=== PATIENT | male | born 1945 | race Caucasian/White ===

== ENCOUNTER 2017-11-10 08:54 | Day surgery (SDC) | payer OTHER ==
[~2017-11-10] VITALS: Ht 177.8 cm; Wt 72.6 kg
[2017-11-10 09:41] VITALS: BP 105/74; PULSE 72; TEMP 98.6
[2017-11-10] MEDS ORDERED: SYNTHROID 0.0.025 MG PO (09:49)
[2017-11-10] MEDS ORDERED: MASON NATURAL2000 IU PO (09:50)
[2017-11-10] MEDS ORDERED: VITAMIN E1000 U/CAP PO (09:50)
[2017-11-10] MEDS ORDERED: STEEL LIBIDO PO (09:51)
[2017-11-10] MEDS ORDERED: MULTIPLE VITAMI1 CAP PO (09:51)
[2017-11-10] MEDS ORDERED: MICRO-K 10 EXT10 MEQ PO (09:52)
[2017-11-10] MEDS ORDERED: IMMUNE PO (09:53)
[2017-11-10] MEDS ORDERED: [UNRECOGNIZED DRUG - OTHER] PO (09:53)
[2017-11-10] MEDS ORDERED: MAGNESIUM200 MG PO (09:53)
[2017-11-10] MEDS ORDERED: [UNRECOGNIZED DRUG - OTHER] PO (09:54)
[2017-11-10 10:43] VITALS: BP 100/69; PULSE 67; TEMP 97.8
[2017-11-10 11:00] VITALS: BP 104/77; PULSE 79
[2017-11-10 11:15] VITALS: BP 101/71; PULSE 75
== END 2017-11-10 11:40 | disposition home or self-care (01) ==
LOC: SDCO 08:54
DX: Z12.11 Encounter for screening for malignant neoplasm of colon (principal); K57.30 Diverticulosis of large intestine without perforation or abscess without bleeding; C91.10 Chronic lymphocytic leukemia of B-cell type not having achieved remission; E03.9 Hypothyroidism, unspecified; Z87.891 Personal history of nicotine dependence
CPT/HCPCS: J2250; J3010; J7030

== ENCOUNTER 2019-03-13 09:15 | Outpatient (RCR) | payer OTHER ==
[~2019-03-13 09:15] MED LIST: IMMUNE PO; MAGNESIUM200 MG PO; MASON NATURAL2000 IU PO; MICRO-K 10 EXT10 MEQ PO; MULTIPLE VITAMI1 CAP PO; STEEL LIBIDO PO; SYNTHROID 0.0.025 MG PO; VITAMIN E1000 U/CAP PO; [UNRECOGNIZED DRUG - OTHER] PO; [UNRECOGNIZED DRUG - OTHER] PO
== END 2019-05-16 | disposition still patient (30) ==
LOC: MKS.ESL.PT
DX: M54.5 Low back pain (principal)
CPT/HCPCS: G0283-GP

== ENCOUNTER 2019-06-03 17:16 | Outpatient (RCR) | payer OTHER ==
[2019-06-04] MEDS ORDERED: [UNRECOGNIZED DRUG - OTHER] (10:22)
[2019-06-04] MEDS ORDERED: UBIQUINOL100 MG PO (10:23)
[2019-06-04] MEDS ORDERED: SELENIUM200 MC5 PO (10:23)
[2019-06-04] MEDS ORDERED: [UNRECOGNIZED DRUG - OTHER] PO (10:30)
[2019-06-04] MEDS ORDERED: [UNRECOGNIZED DRUG - OTHER] PO (10:31)
[2019-06-04] MEDS ORDERED: CYANOCOBALAMIN PO (10:31)
[2019-06-04] MEDS ORDERED: ASHWAGANDHA PO (10:33)
[2019-06-04] MEDS ORDERED: L-THEANINE PO (10:35)
[2019-06-04] MEDS ORDERED: [UNRECOGNIZED DRUG - OTHER] PO (10:36)
[2019-06-04] MEDS ORDERED: POTASSIUM PO (10:36)
[2019-06-04] MEDS ORDERED: B COMPLEX #11 TA1 PO (10:37)
[2019-06-04] MEDS ORDERED: NIACIN NO FLUSH1 CAP PO (10:38)
[2019-06-04] MEDS ORDERED: INOSITOL PO (10:38)
[2019-06-04] MEDS ORDERED: [UNRECOGNIZED DRUG - OTHER] PO (10:39)
[2019-06-04] MEDS ORDERED: [UNRECOGNIZED DRUG - OTHER] PO (10:39)
[2019-06-04] MEDS ORDERED: DHA PO (10:40)
[2019-06-04] MEDS ORDERED: MULTI PO (10:40)
[2019-06-04] MEDS ORDERED: OMEGA PO (10:40)
[2019-06-04] MEDS ORDERED: THYROID COMPLEX PO (10:40)
[2019-06-04] MEDS ORDERED: ADR PO (10:41)
[2019-06-07] MEDS ORDERED: PREDNISONE20 MG PO (09:56)
[2019-07-25] MEDS ORDERED: NORCO 325 MG-51 TAB PO (21:56)
[2019-07-27] MEDS ORDERED: PERCOCET 325 MG1 TA2 PO (19:22)
[2019-07-27] MEDS ORDERED: DULCOLAX STOOL100 MG PO (19:23)
[2019-07-27] MEDS ORDERED: MIRALAX238G PO (19:23)
[2019-07-30] MEDS ORDERED: DECADRON 4MG TAB4 MG PO (16:15)
[2019-07-30] MEDS ORDERED: PERCOCET 325 MG1 TA3 PO (16:15)
[2019-07-30] MEDS ORDERED: VALIUM 5MG T5 MG/TAB PO (16:15)
[2019-08-11] MEDS ORDERED: IMBRUVICA140 M1 PO (22:52)
[2019-08-11] MEDS ORDERED: NORCO 325 MG-101 TAB PO (22:53)
[2019-08-11] MEDS ORDERED: ALEVE 220MG220 MG PO (22:55)
[2019-08-12] MEDS ORDERED: LEVAQUIN 750MG750 M1 PO (03:41)
[2019-08-12] MEDS ORDERED: FLAGYL500 MG PO (03:41)
== END 2019-09-01 | disposition home or self-care (01) ==
LOC: EUO
DX: D58.9 Hereditary hemolytic anemia, unspecified (principal)

== ENCOUNTER 2019-06-04 09:32 | Inpatient (IN) | payer MEDICARE ==
[~2019-06-04] VITALS: Ht 177.8 cm; Wt 71.7 kg
[2019-06-04] MEDS ORDERED: [UNRECOGNIZED DRUG - OTHER] (10:22)
[2019-06-04] MEDS ORDERED: SELENIUM200 MC5 PO (10:23)
[2019-06-04] MEDS ORDERED: UBIQUINOL100 MG PO (10:23)
[2019-06-04] MEDS ORDERED: [UNRECOGNIZED DRUG - OTHER] PO (10:30)
[2019-06-04] MEDS ORDERED: CYANOCOBALAMIN PO (10:31)
[2019-06-04] MEDS ORDERED: [UNRECOGNIZED DRUG - OTHER] PO (10:31)
[2019-06-04] MEDS ORDERED: ASHWAGANDHA PO (10:33)
[2019-06-04] MEDS ORDERED: L-THEANINE PO (10:35)
[2019-06-04] MEDS ORDERED: POTASSIUM PO (10:36)
[2019-06-04] MEDS ORDERED: [UNRECOGNIZED DRUG - OTHER] PO (10:36)
[2019-06-04] MEDS ORDERED: B COMPLEX #11 TA1 PO (10:37)
[2019-06-04] MEDS ORDERED: NIACIN NO FLUSH1 CAP PO (10:38)
[2019-06-04] MEDS ORDERED: INOSITOL PO (10:38)
[2019-06-04] MEDS ORDERED: [UNRECOGNIZED DRUG - OTHER] PO (10:39)
[2019-06-04] MEDS ORDERED: [UNRECOGNIZED DRUG - OTHER] PO (10:39)
[2019-06-04] MEDS ORDERED: DHA PO (10:40)
[2019-06-04] MEDS ORDERED: MULTI PO (10:40)
[2019-06-04] MEDS ORDERED: THYROID COMPLEX PO (10:40)
[2019-06-04] MEDS ORDERED: OMEGA PO (10:40)
[2019-06-04] MEDS ORDERED: ADR PO (10:41)
[2019-06-04 10:57] LABS: ALANINE AMINOTRANSFERASE 30 U/L (21-72); ALBUMIN 4.5 gm/dL (3.5-5.0); ALKALINE PHOSPHATASE 83 U/L (50-136); ANION GAP 11 mmol/L (7-16); AST,SGOT 39 U/L (15-37); BILIRUBIN,TOTAL 2.6 mg/dL (0.0-1.0); BLOOD UREA NITROGEN 30 mg/dL (9-20); CALCIUM 8.6 mg/dL (8.4-10.2); CARBON DIOXIDE 25 mmol/L (22-30); CHLORIDE 104 mmol/L (98-107); CREATININE, serum 0.95 (0.66-1.25); GLUCOSE 106 mg/dL (74-106); POTASSIUM 4.2 mmol/L (3.4-5.0); SODIUM 140 mmol/L (137-145)
[2019-06-04 11:09] LABS: MEAN CELL VOLUME 120 fl (80.0-100.0); MEAN CORPUSCULAR HGB CONC 33 g/dl (33.0-37.0); MEAN PLATELET VOLUME 9.5 fl (7.4-10.4); PLATELET COUNT 252 K/mm3 (130-400); RED BLOOD COUNT 1.23 M/mm3 (4.20-5.60); REDCELL DISTRIBUTION WIDTH-CV 22.3 % (11.5-14.5); RETIC # 0.04 M/mm3 (0.02-0.16); RETIC % 3.4 % (0.5-3.52)
--- NOTE | 2019-06-04 11:11 | NUR ---
arrived on unit per stretcher from ED, alert and oriented, assisted up and off stretcher and into bed
[2019-06-04 11:13] LABS: TROPONIN-I < 0.012 ng/mL (0.000-0.035)
[2019-06-04 11:40] LABS: HEMOGLOBIN 4.8 g/dl (13.5-18.0); MEAN CORPUSCULAR HEMOGLOBIN 39 pg (27.0-31.0)
[2019-06-04 11:41] LABS: HEMATOCRIT 14.7 % (42.0-52.0)
[2019-06-04 12:00] LABS: BAND 1 % (0-10); EOSINOPHIL 1 % (0-4); NEUTROPHILS 6 % (42.0-75.2); PLATELET ESTIMATE NORMAL (NORMAL)
--- NOTE | 2019-06-04 12:00 | NUR ---
Omer Calvert notified of critical lab results
[2019-06-04 12:03] LABS: LYMPHOCYTE 91 % (20.0-51.0)
[2019-06-04 12:07] VITALS: BP 98/55; PULSE 80; TEMP 97
--- NOTE | 2019-06-04 12:13 | NUR ---
spoke with blood bank personnel and requested 2 additional units of blood be brought in for this patient
--- NOTE | 2019-06-04 13:00 | NUR ---
resting in bed visiting with a friend
--- NOTE | 2019-06-04 14:10 | NUR ---
sitting up in bed eating lunch
[2019-06-04 15:19] LABS: BILIRUBIN,DIRECT 0.2 mg/dL (0.0-0.4)
--- NOTE | 2019-06-04 15:27 | NUR ---
telemetry placed on patient and transmission confirmed with platform power technician
--- NOTE | 2019-06-04 16:35 | NUR ---
remains resting in bed, provided water per his request, denies other needs, Dr Dudley in to see patient
[2019-06-04 17:28] VITALS: BP 98/54; PULSE 88; TEMP 98.6
--- NOTE | 2019-06-04 19:07 | NUR ---
bedside shift report given to NIURKA Morrissey and NIURKA Landrum
[2019-06-04 20:05] VITALS: BP 106/56; PULSE 103; TEMP 100
--- NOTE | 2019-06-04 21:58 | NUR ---
Called lab to check on PRBC for transfusion. Reported that they had just got off the phone with [place] and they are still doing type and cross match at this time.
--- NOTE | 2019-06-04 22:40 | NUR ---
PT report received from daysndft nurse and meet and greet performed. PT remembers this caption writer from his last outpatient stay on the unit for a blood transfusion and begins to joke around with this caption writer. PT presents with no s/s of distress, is able to make his wants/needs known, has call light within reach and bedside table with beverages available. During assessment PT states he needs to use restroom to void and education provided on fall risk and the importance of using call light when nurse is not in room to reduce the risk of falls and/or injury. PT states understanding and replies that he does not need this assistance but understands policy. PT assisted to restroom with urine color and clarity noted by this caption writer. PT states that he has a little GI upset and requests a pickle or a "shot of pickle juice" and refuses any medicinal intervention stating that he prefers homeopathic remedies. Education provided that there are no pickles or pickle juice in the unit kitchen and that dietary has shut down for the evening. PT states understanding and still refuses any other interventions at this time. Will continue to monitor.
[2019-06-05] VITALS (13 sets, daily range): BP systolic 92–116; BP diastolic 52–61; PULSE 81–101; TEMP 97.5–100
--- NOTE | 2019-06-05 04:03 | NUR ---
PT resting in bed with eyes closed but PT opens eyes when this screenplay writer enters room. PT denies pain nor wants/needs at this time and presents without s/s of distress. PT call light within reach. Will continue to monitor.
[2019-06-05 07:40] LABS: MEAN CELL VOLUME 121 fl (80.0-100.0); MEAN CORPUSCULAR HGB CONC 32 g/dl (33.0-37.0); MEAN PLATELET VOLUME 9.5 fl (7.4-10.4); PLATELET COUNT 238 K/mm3 (130-400); RED BLOOD COUNT 1.06 M/mm3 (4.20-5.60); REDCELL DISTRIBUTION WIDTH-CV 23.7 % (11.5-14.5)
[2019-06-05 07:49] LABS: ALBUMIN 4.1 gm/dL (3.5-5.0); BILIRUBIN,TOTAL 2.2 mg/dL (0.0-1.0); CALCIUM 8.5 mg/dL (8.4-10.2); CREATININE, serum 0.95 (0.66-1.25); MAGNESIUM 2.2 mg/dL (1.6-2.3); POTASSIUM 4.3 mmol/L (3.4-5.0); TOTAL PROTEIN 6.6 gm/dL (6.4-8.2)
[2019-06-05 08:02] LABS: HEMATOCRIT 12.8 % (42.0-52.0); HEMOGLOBIN 4.1 g/dl (13.5-18.0); MEAN CORPUSCULAR HEMOGLOBIN 39 pg (27.0-31.0)
[2019-06-05 08:34] LABS: NEUTROPHILS 5 % (42.0-75.2); PLATELET ESTIMATE NORMAL (NORMAL)
[2019-06-05 08:35] LABS: LYMPHOCYTE 95 % (20.0-51.0)
[2019-06-05 09:16] LABS: RETIC # 0.04 M/mm3 (0.02-0.16); RETIC % 3.5 % (0.5-3.52)
--- NOTE | 2019-06-05 09:22 | NUR ---
SANDOVAL met with the patient and his friend, Jesse, to discuss discharge plan. The patient lives alone in [place]. He reports independence with ADLs and does not have any DME. The patient's primary care provider is a Dr. Silveira and the [facility] and he receives his medications at [facility]. He reports occasional difficulties affording his meds. He states that his pharmacy will provide him with discount cards. The patient does not have advanced directives completed, but he was interested in obtaining a form for DPOA-HC. SANDOVAL provided. He states that he would want to designate his xgohui-or-ssp, Ting (ph#[phone]). The patient plans to return home upon discharge. No additional needs at this time.
--- NOTE | 2019-06-05 11:12 | NUR ---
Assessment completed, alert/oriented, vital signs stable, denies pain or discomfort, heart RRR/ distal pulses are palpable, lungs CTA/ no resp.difficutly, his Hgbn 4.1 this morning/ and notified, Steroids being given and having discussions on giving blood transfusion versus just watching closely for now, patient denies needs or concerns at thistime, will continue to monitor closely
[2019-06-05 14:32] LABS: MEAN CELL VOLUME 120 fl (80.0-100.0); MEAN CORPUSCULAR HGB CONC 31 g/dl (33.0-37.0); MEAN PLATELET VOLUME 9.4 fl (7.4-10.4); PLATELET COUNT 253 K/mm3 (130-400); RED BLOOD COUNT 1.15 M/mm3 (4.20-5.60); REDCELL DISTRIBUTION WIDTH-CV 23.8 % (11.5-14.5)
[2019-06-05 14:41] LABS: HEMATOCRIT 13.8 % (42.0-52.0); HEMOGLOBIN 4.3 g/dl (13.5-18.0); MEAN CORPUSCULAR HEMOGLOBIN 37 pg (27.0-31.0)
[2019-06-05 14:56] LABS: BAND 1 % (0-10); LYMPHOCYTE 89 % (20.0-51.0); NEUTROPHILS 6 % (42.0-75.2); PLATELET ESTIMATE NORMAL (NORMAL)
[2019-06-05 14:57] LABS: HYPOCHROMIA 2+
--- NOTE | 2019-06-05 18:00 | NUR ---
Patient completed transfusion of 1st unit of PRBC and tolerated well, no signs of reactions or complications, 2nd unit transfusing now and report given to third shift lieutenant nurse NIURKA Morrissey
--- NOTE | 2019-06-05 19:20 | NUR ---
PT report received form dayshift nurse and meet/greet performed. PT is resting in bed with blood transfusing and no s/s of adverse reactions noted. Call light is within reach and beverages are on bedside table. Will continue to monitor.
[2019-06-05 22:59] LABS: HEMOGLOBIN 5.6 g/dl (13.5-18.0)
[2019-06-06] VITALS (18 sets, daily range): BP systolic 83–116; BP diastolic 42–71; PULSE 77–87; TEMP 97.5–98.3
--- NOTE | 2019-06-06 00:26 | NUR ---
PT has completed blood transfusions and tolerated procedure well. PT educated on newly obtained H&H after transfusion completed and HgB noted as 5.6 which previously was 4.3. New orders from Dr. Dudley to hold any further transfusions until morning and then transfuse 2 more units. Pt states understanding of education. PT is eager to be able to return home. PT has been watching tv during shift, resting in bed, with no wants/needs. T this time PT is resting in bed with eyes closed and no s/s of distress. Call light within reach. Will continue to monitor.
--- NOTE | 2019-06-06 04:37 | NUR ---
PT resting in bed with TRAFFIC SIGNAL MECHANIC present and obtaining VS. PT is noted to have hypotension and denies any s/s of cardiac/pulmonary distress and presents with no changes in LOC. Will reassess BP and continue to monitor.
[2019-06-06 06:10] LABS: MEAN CORPUSCULAR HGB CONC 32 g/dl (33.0-37.0); MEAN PLATELET VOLUME 9.4 fl (7.4-10.4); PLATELET COUNT 236 K/mm3 (130-400); RED BLOOD COUNT 1.61 M/mm3 (4.20-5.60)
[2019-06-06 06:17] LABS: ALBUMIN 4.1 gm/dL (3.5-5.0); BILIRUBIN,TOTAL 1.9 mg/dL (0.0-1.0); CALCIUM 8.5 mg/dL (8.4-10.2); CREATININE, serum 0.93 (0.66-1.25); POTASSIUM 4.5 mmol/L (3.4-5.0); TOTAL PROTEIN 6.5 gm/dL (6.4-8.2)
[2019-06-06 06:19] LABS: HEMATOCRIT 17.1 % (42.0-52.0); HEMOGLOBIN 5.5 g/dl (13.5-18.0); MEAN CELL VOLUME 106 fl (80.0-100.0); MEAN CORPUSCULAR HEMOGLOBIN 34 pg (27.0-31.0)
[2019-06-06 07:45] LABS: ANISOCYTOSIS 2+; BAND 1 % (0-10); NEUTROPHILS 8 % (42.0-75.2); PLATELET ESTIMATE NORMAL (NORMAL); TARGET CELLS 1+
[2019-06-06 07:46] LABS: LYMPHOCYTE 88 % (20.0-51.0)
[2019-06-06 08:08] LABS: PATHOLOGY DIFF REVIEW OK +
--- NOTE | 2019-06-06 09:36 | NUR ---
Assessment completed, alert/oriented, vital signs stable, denies an pain or discomfort, hemaglobin 5.5 this morning notified and ordered to give remaining 2 units of PRBC, patient tolerated transfsuion well yessterday, heart RRR, lungs CTA, denies feeling faigue/dizzy or lightheaded, he is ambulatory and up in his room independently, will continue to monitor
[2019-06-06 09:44] LABS: RETIC # 0.04 M/mm3 (0.02-0.16); RETIC % 2.3 % (0.5-3.52)
--- NOTE | 2019-06-06 11:35 | NUR ---
First visit from the gta. No needs right now.
[2019-06-06 20:12] LABS: HEMATOCRIT 22.6 % (42.0-52.0); HEMOGLOBIN 7.5 g/dl (13.5-18.0)
--- NOTE | 2019-06-06 20:15 | NUR ---
Patient assessed at this time. Alert and oriented x 4, and able to make needs known. Denies having pain and discomfort. IV site to left forearm flushed. Site without redness, warmth, swelling, and pain. Denies SOB and dypsnea. LS CTA. Respirations even and unlabored. HRR. Telemetry in place: sinus. Capillary refill less than 3 seconds. Non-tenting skin turgor. BSAx4. Abdomen soft and non-tender. No edema. Voices no questions, needs, or concerns at this time. Call light is within reach.
--- NOTE | 2019-06-06 21:00 | NUR ---
Repeat Hmg 7.5.
[2019-06-07 04:19] VITALS: BP 98/54; PULSE 62; TEMP 97.7
--- NOTE | 2019-06-07 05:38 | NUR ---
Patient has denied having pain and discomfort this shift. Stated that he was feeling well except that he felt dirty. Offered to assist into shower and agreed. New linens of bed. Afterwards stated that he was feeling much better. Voices no further questsion, needs, or concerns at this time. Resting in bed with call light within reach.
[2019-06-07 06:27] LABS: MEAN CORPUSCULAR HGB CONC 33 g/dl (33.0-37.0); MEAN PLATELET VOLUME 9.5 fl (7.4-10.4); PLATELET COUNT 228 K/mm3 (130-400); RED BLOOD COUNT 2.25 M/mm3 (4.20-5.60); REDCELL DISTRIBUTION WIDTH-CV 22.6 % (11.5-14.5)
[2019-06-07 06:38] LABS: ALBUMIN 3.7 gm/dL (3.5-5.0); BILIRUBIN,TOTAL 1.6 mg/dL (0.0-1.0); CALCIUM 8.5 mg/dL (8.4-10.2); CREATININE, serum 0.75 (0.66-1.25); POTASSIUM 4.3 mmol/L (3.4-5.0); TOTAL PROTEIN 6.4 gm/dL (6.4-8.2)
[2019-06-07 06:50] LABS: HEMATOCRIT 22.1 % (42.0-52.0); HEMOGLOBIN 7.3 g/dl (13.5-18.0); MEAN CELL VOLUME 98 fl (80.0-100.0); MEAN CORPUSCULAR HEMOGLOBIN 32 pg (27.0-31.0)
[2019-06-07 07:22] LABS: LYMPHOCYTE 93 % (20.0-51.0); NEUTROPHILS 5 % (42.0-75.2); PLATELET ESTIMATE NORMAL (NORMAL)
[2019-06-07 07:29] VITALS: BP 99/64; PULSE 69; TEMP 98
[2019-06-07] MEDS ORDERED: PREDNISONE20 MG PO (09:56)
[2019-06-07 11:54] VITALS: BP 101/63; PULSE 65; TEMP 97.4
--- NOTE | 2019-06-07 13:40 | NUR ---
PT HAD UNEVENTFUL MORNING. DISCHARGE EDUCATION WAS PROVIDED, PT STATED HE WAS THANKFUL FOR ALL THE PRINTED INFORMATION. REMOVED IV AND TELE WITHOUT ISSUES. THIS NURSE ESCORTED PT JEFF.
== END 2019-06-07 13:40 | disposition home or self-care (01) | DRG 841 ==
LOC: COL.ER 09:32 → MEDICAL 10:21
PROVIDERS: Emergency Medicine; Internal Medicine Medical Oncology; Nurse Practitioner Family; Physician Assistant; ADMIT Student in an Organized Health Care Education/Training Program
DX: C91.10 Chronic lymphocytic leukemia of B-cell type not having achieved remission (principal); D59.1 Other autoimmune hemolytic anemias; E80.6 Other disorders of bilirubin metabolism; R05 Cough; R00.2 Palpitations; R73.9 Hyperglycemia, unspecified; Z90.89 Acquired absence of other organs; Z87.891 Personal history of nicotine dependence
CPT/HCPCS: 99222-AI; 99232-AI; 99233-AI; 99239; G0378; J2930; J7512; P9040

== ENCOUNTER 2019-08-04 19:57 | Emergency (ER) | payer OTHER ==
[~2019-08-04] VITALS: Ht 177.8 cm; Wt 72.7 kg
[~2019-08-04 19:57] MED LIST changes: +ADR PO; +ASHWAGANDHA PO; +B COMPLEX #11 TA1 PO; +CYANOCOBALAMIN PO; +DECADRON 4MG TAB4 MG PO; +DHA PO; +DULCOLAX STOOL100 MG PO; +INOSITOL PO; +L-THEANINE PO; +MIRALAX238G PO; +MULTI PO; +NIACIN NO FLUSH1 CAP PO; +NORCO 325 MG-51 TAB PO; +OMEGA PO; +PERCOCET 325 MG1 TA2 PO; +PERCOCET 325 MG1 TA3 PO; +POTASSIUM PO; +PREDNISONE20 MG PO; +SELENIUM200 MC5 PO; +THYROID COMPLEX PO; +UBIQUINOL100 MG PO; +VALIUM 5MG T5 MG/TAB PO; +[UNRECOGNIZED DRUG - OTHER]; +[UNRECOGNIZED DRUG - OTHER] PO; +[UNRECOGNIZED DRUG - OTHER] PO; +[UNRECOGNIZED DRUG - OTHER] PO; +[UNRECOGNIZED DRUG - OTHER] PO; +[UNRECOGNIZED DRUG - OTHER] PO
[2019-08-04 20:06] VITALS: BP 118/73; PULSE 99; TEMP 98.5
== END 2019-08-04 21:00 | disposition home or self-care (01) ==
LOC: COL.ER 19:57
DX: M54.41 Lumbago with sciatica, right side (principal); C85.90 Non-Hodgkin lymphoma, unspecified, unspecified site

== ENCOUNTER 2021-04-21 18:38 | Inpatient (IN) | payer OTHER, MEDICARE ==
[~2021-04-21] VITALS: Ht 175.3 cm; Wt 76.6 kg
[~2021-04-21 18:38] MED LIST changes: +ALEVE 220MG220 MG PO; +FLAGYL500 MG PO; +IMBRUVICA140 M1 PO; +LEVAQUIN 750MG750 M1 PO; +NORCO 325 MG-101 TAB PO
[2021-04-21 19:53] LABS: HEMATOCRIT 41.6 % (42.0-52.0); HEMOGLOBIN 13.9 g/dl (13.5-18.0); MEAN CELL VOLUME 89 fl (80.0-100.0); MEAN CORPUSCULAR HEMOGLOBIN 30 pg (27-31); MEAN CORPUSCULAR HGB CONC 33 g/dl (33.0-37.0); MEAN PLATELET VOLUME 8.7 fl (7.4-10.4); PLATELET COUNT 184 K/mm3 (130-400); REDCELL DISTRIBUTION WIDTH-CV 13.6 % (11.5-14.5)
[2021-04-21] MEDS ORDERED: PRILOSEC10 MG PO (20:02)
[2021-04-21 20:12] LABS: ALBUMIN 4.2 gm/dL (3.4-4.8); BILIRUBIN,TOTAL 0.4 mg/dL (0.2-1.2); CREATININE, serum 0.85 mg/dL (0.72-1.25); POTASSIUM 4.5 mmol/L (3.5-4.5); TOTAL PROTEIN 6.7 gm/dL (6.2-8.1)
[2021-04-21 20:18] LABS: INR 1.1 (0.8-3.0); PROTHROMBIN TIME 11.9 SECONDS (9.7-12.8)
[2021-04-21] MEDS ORDERED: PRIL40 PO (20:47)
[2021-04-21] MEDS ORDERED: MULTI VITAMINS1 TAB PO (20:48)
[2021-04-21] MEDS ORDERED: GREEN TEA EXTR150 MG PO (20:48)
[2021-04-21] MEDS ORDERED: [UNRECOGNIZED DRUG - OTHER] PO (20:50)
[2021-04-21] MEDS ORDERED: VITAMIN K0.1 MG (20:50)
[2021-04-21] MEDS ORDERED: NATURAL POTASS595 MG PO (20:51)
[2021-04-21] MEDS ORDERED: SUPER BEETS PO (20:51)
[2021-04-21] MEDS ORDERED: NATURAL MAGNES200 MG PO (20:51)
[2021-04-21] MEDS ORDERED: [UNRECOGNIZED DRUG - OTHER] PO (20:51)
[2021-04-21] MEDS ORDERED: GLUCOSAMINE & C1 TAB PO (20:52)
[2021-04-21] MEDS ORDERED: MASON NATURAL2000 IU PO (20:53)
[2021-04-21] MEDS ORDERED: [UNRECOGNIZED DRUG - OTHER] PO (20:53)
[2021-04-21] MEDS ORDERED: thyroid supplement (20:54)
[2021-04-21] MEDS ORDERED: [UNRECOGNIZED DRUG - OTHER] PO (20:55)
[2021-04-21] MEDS ORDERED: PROBIOTIC 2 BI1 EACH PO (20:55)
[2021-04-21] MEDS ORDERED: AIRBORNE ELDER1 EACH PO (20:56)
[2021-04-21 21:02] LABS: BAND 3 % (0-10); EOSINOPHIL 1 % (0-4); LYMPHOCYTE 47 % (20.0-51.0); NEUTROPHILS 43 % (42.0-75.2)
[2021-04-21 21:03] LABS: PLATELET ESTIMATE NORMAL (NORMAL)
[2021-04-21 22:09] LABS: COLLECTION METHOD CATHETER
[2021-04-21 22:19] LABS: MUCOUS Present (NOT PRESENT); PH 6 (5-8); SQUAMOUS EPITHELIAL None Seen /hpf (0-10); URINE APPEARANCE Clear (CLEAR/HAZY); URINE BACTERIA Rare (NONE SEEN); URINE BILIRUBIN Negative (NEGATIVE); URINE BLOOD Negative (NEGATIVE); URINE COLOR Yellow (YELLOW); URINE GLUCOSE Negative (NEGATIVE); URINE KETONE Negative (NEGATIVE); URINE LEUKOCYTE ESTERASE Negative (NEGATIVE); URINE NITRATE Negative (NEGATIVE); URINE PROTEIN(semi-quant) Negative (NEGATIVE); URINE UROBILINOGEN Negative (NEGATIVE)
[2021-04-21 23:10] VITALS: BP 115/79; PULSE 96; TEMP 98.3
[2021-04-22] VITALS (9 sets, daily range): BP systolic 87–115; BP diastolic 51–68; PULSE 70–90; TEMP 97.4–98.3
--- NOTE | 2021-04-22 08:17 | NUR ---
PT ASSESSED. NO COMPLAINTS OF PAIN OR DYSPNEA. NO SIGNS OR SYMPTOMS OF DISTRESS. CALL LIGHT WITHIN REACH.
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
--- NOTE | 2021-04-22 09:47 | NUR ---
Initial visit; Patient thanked Wood Stainer for looking in him and offering prayer and God's blessings. Patient states that he has trouble being immobile but looks forward to Wood Stainer coming in to pray with him again soon.
--- NOTE | 2021-04-22 11:31 | NUR ---
Follow-up; Patient wanted more time with Magazine Journalist to read Scripture to him prior to his surgical procedure. Magazine Journalist did so along with some prayers from a prayer book. Magazine Journalist will continue to follow up.
--- NOTE | 2021-04-22 21:00 | NUR ---
Pt. sitting up in bed. Pt. is A&OX3, assessment complete. INT to lt. hand patent. Pt. denies pain at this time. [facility] WNL. Dressings x3 to lt. leg CDI. Pt. denies further needs.
[2021-04-23 00:05] VITALS: BP 90/51; PULSE 83; TEMP 98
[2021-04-23 04:02] VITALS: BP 95/57; PULSE 83; TEMP 97.9
[2021-04-23 06:20] LABS: MEAN CELL VOLUME 90 fl (80.0-100.0); MEAN CORPUSCULAR HGB CONC 32 g/dl (33.0-37.0); MEAN PLATELET VOLUME 9.4 fl (7.4-10.4); PLATELET COUNT 170 K/mm3 (130-400); RED BLOOD COUNT 3.23 M/mm3 (4.20-5.60); REDCELL DISTRIBUTION WIDTH-CV 14.1 % (11.5-14.5)
[2021-04-23 06:39] LABS: HEMOGLOBIN 9.4 g/dl (13.5-18.0); MEAN CORPUSCULAR HEMOGLOBIN 29 pg (27-31)
[2021-04-23 06:48] LABS: CREATININE, serum 0.77 mg/dL (0.72-1.25); POTASSIUM 4.1 mmol/L (3.5-4.5)
[2021-04-23 07:44] LABS: CALCIUM 7.5 mg/dL (8.4-10.2)
[2021-04-23 07:58] VITALS: BP 96/57; PULSE 79; TEMP 98
[2021-04-23 08:05] LABS: BAND 4 % (0-10); EOSINOPHIL 2 % (0-4); NEUTROPHILS 37 % (42.0-75.2)
[2021-04-23 08:07] LABS: PLATELET ESTIMATE NORMAL (NORMAL)
[2021-04-23 08:08] LABS: LYMPHOCYTE 55 % (20.0-51.0)
--- NOTE | 2021-04-23 10:00 | NUR ---
Patient alert and oriented, answers questions appropriately. See assessment. Right hip repair with incision sites x3 CDI, tegaderm and gauze in place. FWB. ROM to RLE limited. Uses FWW and gait belt for ambulation. TEDs and SCDs in place. Patient up in chair at this time. No c/o at this time.
--- NOTE | 2021-04-23 10:36 | NUR ---
Follow-up visit; Patient thanked Tool Shaper Setup Operator for looking in on him this morning following his surgical procedure. Patient states he is doing ok although a bit nauseous due to being hungry and having to wait for his food for over 45 minutes. Tool Shaper Setup Operator listened.
[2021-04-23 11:23] VITALS: BP 98/61; PULSE 84; TEMP 98.3
--- NOTE | 2021-04-23 14:32 | NUR ---
Patient has remained up in chair most of the day, requested to lay back in bed at this time. Transfered to bed with assist x1. Khoury catheter in place, patent and draining clear yellow urine. No c/o at this time.
--- NOTE | 2021-04-23 15:32 | NUR ---
Spreader Box Operator collaborated with Carrie, IPR Director who is working on authorization from the OR.
[2021-04-23 15:55] VITALS: BP 108/65; PULSE 91; TEMP 97.9
[2021-04-23 19:36] VITALS: BP 106/59; PULSE 96; TEMP 99.5
--- NOTE | 2021-04-23 22:40 | NUR ---
Patient assessed around 2049. Alert and oriented x 4, and able to make needs known. Given PRN Roxicodone for pain as requested. Denies SOB and dyspnea. INT to left hand. Dressing to hip CDI. Called and received orders for stool softener as requested. BSAx4. Voices no further questions, needs, or concerns at this time. In bed with call light within reach.
[2021-04-24] VITALS (7 sets, daily range): BP systolic 97–107; BP diastolic 54–67; PULSE 86–103; TEMP 97.4–99.5
--- NOTE | 2021-04-24 06:13 | NUR ---
Patient recieved PRN pain medication once this shift. Has voiced no further questions, needs, or concerns. In bed with call light within reach.
[2021-04-24 07:40] LABS: CREATININE, serum 0.7 mg/dL (0.72-1.25); POTASSIUM 4.1 mmol/L (3.5-4.5)
[2021-04-24 08:01] LABS: HEMATOCRIT 26.9 % (42.0-52.0)
--- NOTE | 2021-04-24 11:08 | NUR ---
Assessment completed, alert/oriented, vital signs stable, pain controlled/ denies needs for pain meds, ICE pack applied, PT/OT working with patient this morning, insion dressing is C/D/I to left hip, pedal pulses are palapble, patient is toelrting PO intake, jaquez still in place and will get order to remove that today, he denies other needs at this time, will cotninue to monitor
[2021-04-25 03:48] VITALS: BP 97/60; PULSE 87; TEMP 97.8
--- NOTE | 2021-04-25 04:48 | NUR ---
PT HAVING SOME DISCOMFORT ESPECIALLY WITH MOVEMENT. PT ABLE TO GET UP AND AMBULATE USING WALKER. PT REFUSED ANY PRN PAIN MEDICATION. ICE IN USE.
[2021-04-25 07:06] VITALS: BP 100/51; PULSE 89; TEMP 97.6
[2021-04-25 08:07] LABS: CREATININE, serum 0.71 mg/dL (0.72-1.25); POTASSIUM 3.9 mmol/L (3.5-4.5)
[2021-04-25 08:50] LABS: MEAN CELL VOLUME 89 fl (80.0-100.0); MEAN CORPUSCULAR HGB CONC 33 g/dl (33.0-37.0); MEAN PLATELET VOLUME 9.3 fl (7.4-10.4); PLATELET COUNT 171 K/mm3 (130-400); REDCELL DISTRIBUTION WIDTH-CV 13.7 % (11.5-14.5)
[2021-04-25 08:53] LABS: HEMATOCRIT 26.7 % (42.0-52.0); HEMOGLOBIN 8.8 g/dl (13.5-18.0); MEAN CORPUSCULAR HEMOGLOBIN 29 pg (27-31)
--- NOTE | 2021-04-25 10:30 | NUR ---
Patient alert and oriented, answers questions appropriately. See assessment. Left hip incision with dressing CDI, no redness or drainage noted. FWB. PEPITO hose and SCDs in place. Pulses palpable to BLE. Sensation intact to LLE, no c/o numbness or tingling. Ambulates with standby assist and FWW, gait belt. Offered pain medication, declined. Patient c/o generalized discomfort from bed mattress, states the mattress is very poor. Another bed brought to room and air mattress applied to bed as well. No other c/o at this time.
[2021-04-25 11:21] VITALS: BP 92/61; PULSE 96; TEMP 98.1
[2021-04-25 12:15] LABS: HYPOCHROMIA 1+; LYMPHOCYTE 61 % (20.0-51.0); NEUTROPHILS 31 % (42.0-75.2); PLATELET ESTIMATE NORMAL (NORMAL)
[2021-04-25 16:01] VITALS: BP 99/63; PULSE 100; TEMP 98.8
--- NOTE | 2021-04-25 16:08 | NUR ---
Patient states air mattress has much improved his discomfort, was able to sleep for a few hours this afternoon. No other c/o at this time.
[2021-04-25 20:10] VITALS: BP 102/59; PULSE 99; TEMP 98.4
[2021-04-26] VITALS (8 sets, daily range): BP systolic 92–125; BP diastolic 54–71; PULSE 70–100; TEMP 97.9–99
--- NOTE | 2021-04-26 05:38 | NUR ---
RESTING QUIETLY MOST OF NIGHT. PT TRIES TO BE INDEPENDENT WITH AMBULATION BUT NEEDS ASSIST WITH MOVING LLE BACK INTO BED.
[2021-04-26 09:56] LABS: MEAN CELL VOLUME 93 fl (80.0-100.0); MEAN CORPUSCULAR HGB CONC 32 g/dl (33.0-37.0); MEAN PLATELET VOLUME 8.9 fl (7.4-10.4); PLATELET COUNT 226 K/mm3 (130-400); RED BLOOD COUNT 3.28 M/mm3 (4.20-5.60); REDCELL DISTRIBUTION WIDTH-CV 13.9 % (11.5-14.5)
[2021-04-26 09:58] LABS: HEMATOCRIT 30.4 % (42.0-52.0); HEMOGLOBIN 9.8 g/dl (13.5-18.0); MEAN CORPUSCULAR HEMOGLOBIN 30 pg (27-31)
[2021-04-26 10:06] LABS: CALCIUM 8.5 mg/dL (8.4-10.2); CREATININE, serum 0.7 mg/dL (0.72-1.25); POTASSIUM 3.9 mmol/L (3.5-4.5)
--- NOTE | 2021-04-26 10:21 | NUR ---
Patient alert and oriented, answers questions appropriately. See assessment. Left hip dressing changed, incision with edges well approximated, no redness or drainage noted. Pulses palpable to BLE. No numbness or tingling reported to LLE. FWB. Uses FWW and gait belt for ambulation. Activity and exercises reviewed with patient. No c/o at this time.
[2021-04-26 10:25] LABS: BAND 1 % (0-10); EOSINOPHIL 2 % (0-4); NEUTROPHILS 23 % (42.0-75.2); PLATELET ESTIMATE NORMAL (NORMAL)
[2021-04-26 10:26] LABS: LYMPHOCYTE 72 % (20.0-51.0)
[2021-04-26 11:04] LABS: PATHOLOGY DIFF REVIEW OK
--- NOTE | 2021-04-26 14:01 | NUR ---
Carrie, with IPR, reports that she has been able to get in contact with a rep through [facility] and has submitted for auth. Awaiting auth.
--- NOTE | 2021-04-26 14:40 | NUR ---
Follow up with patient; He is waiting to go to the Rehabilitation Unit. Patient spoke at length about his stay here at [facility]/via [facility] and then requested that Consulting Senior Practice Director read prayers she had brought on a previous visit. horseradish maker wished him well and offered a blessing.
--- NOTE | 2021-04-27 03:31 | NUR ---
patient refuses pain medication although he has verbalized that he is uncomfortable and cannot sleep. IV R hand flushed. refused teds and scds at this time. states he has been constipated, scheduled colace given.
[2021-04-27 04:30] VITALS: BP 105/60; PULSE 79; TEMP 97.9
--- NOTE | 2021-04-27 06:49 | NUR ---
Report received from NIURKA Toledo. Patient is resting comfortably in bed. Call light and bedside table are within reach. Will continue to monitor patient throughout shift.
[2021-04-27 06:57] LABS: MEAN CELL VOLUME 90 fl (80.0-100.0); MEAN CORPUSCULAR HGB CONC 34 g/dl (33.0-37.0); MEAN PLATELET VOLUME 8.8 fl (7.4-10.4); PLATELET COUNT 222 K/mm3 (130-400); RED BLOOD COUNT 2.98 M/mm3 (4.20-5.60)
[2021-04-27 07:11] LABS: HEMATOCRIT 26.9 % (42.0-52.0); MEAN CORPUSCULAR HEMOGLOBIN 30 pg (27-31)
[2021-04-27 07:23] LABS: CALCIUM 8.2 mg/dL (8.4-10.2); CREATININE, serum 0.7 mg/dL (0.72-1.25); POTASSIUM 3.9 mmol/L (3.5-4.5)
[2021-04-27 08:00] VITALS: BP 99/59; PULSE 93; TEMP 97.5
[2021-04-27 08:24] LABS: BAND 1 % (0-10); EOSINOPHIL 2 % (0-4); METAMYELOCYTE 1 % (0-0); NEUTROPHILS 27 % (42.0-75.2)
[2021-04-27 08:25] LABS: LYMPHOCYTE 63 % (20.0-51.0); PLATELET ESTIMATE NORMAL (NORMAL)
[2021-04-27 11:49] VITALS: BP 110/34; PULSE 87; TEMP 97.4
[2021-04-27] MEDS ORDERED: OSCAL 500 TAB500 MG PO (13:31)
[2021-04-27] MEDS ORDERED: MIRALAX PA17 GM/Dose PO (13:31)
[2021-04-27] MEDS ORDERED: ASPI325T6 PO (13:31)
[2021-04-27] MEDS ORDERED: VITAMIN C500 MG PO (13:32)
--- NOTE | 2021-04-27 13:50 | NUR ---
Madeline, IPR Director, reports that she received auth for the patient and is able to take him today. SANDOVAL met with the patient to follow up and offered to contact his family. The patient requested that SW not and reports that he will be notifying his family on his own of the move over to [facility]. He had no questions or concerns for SW at this time. The patient is to discharge today, 04/27, to [facility]. No additional needs at this time.
[2021-04-27 16:30] VITALS: BP 106/67; PULSE 95; TEMP 97.4
--- NOTE | 2021-04-27 16:46 | NUR ---
Patient has transferred from Room 344 to room 339. All personal belongings have been cleared from room including cell phone and school bus inspector. Patient is now resting comfortably in bed. Call light and bedside table are within reach. Will continue to monitor patient throughout shift.
== END 2021-04-27 15:45 | DRG 481 ==
LOC: COL.ER 18:38 → SURG 19:34
PROVIDERS: Nurse Practitioner Family; Orthopaedic Surgery Sports Medicine; Physician Assistant; ADMIT Internal Medicine
PROC: 0QS706Z Reposition Left Upper Femur with Intramedullary Internal Fixation Device, Open Approach (ICD-10-PCS; principal; 2021-04-22 15:00)
DX: S72.142A Displaced intertrochanteric fracture of left femur, initial encounter for closed fracture (principal); C91.10 Chronic lymphocytic leukemia of B-cell type not having achieved remission; D62 Acute posthemorrhagic anemia; W17.89XA Other fall from one level to another, initial encounter; Y92.89 Other specified places as the place of occurrence of the external cause; Z98.42 Cataract extraction status, left eye; Z98.41 Cataract extraction status, right eye; Z87.891 Personal history of nicotine dependence; E03.9 Hypothyroidism, unspecified
CPT/HCPCS: 99222-AI; 99231-AI; 99232-AI; 99233-AI; 99239; A9284; C1713; C1769; J0690; J1170; J2250; J2270; J2405; J2704; J3010; J7042

== ENCOUNTER 2021-04-27 15:30 | Inpatient (IN) | payer OTHER ==
[~2021-04-27] VITALS: Ht 175.3 cm; Wt 69.7 kg
[~2021-04-27 15:30] MED LIST changes: +AIRBORNE ELDER1 EACH PO; +ASPI325T6 PO; +GLUCOSAMINE & C1 TAB PO; +GREEN TEA EXTR150 MG PO; +MIRALAX PA17 GM/Dose PO; +MULTI VITAMINS1 TAB PO; +NATURAL MAGNES200 MG PO; +NATURAL POTASS595 MG PO; +OSCAL 500 TAB500 MG PO; +PRIL40 PO; +PRILOSEC10 MG PO; +PROBIOTIC 2 BI1 EACH PO; +SUPER BEETS PO; +VITAMIN C500 MG PO; +VITAMIN K0.1 MG; +[UNRECOGNIZED DRUG - OTHER] PO; +[UNRECOGNIZED DRUG - OTHER] PO; +[UNRECOGNIZED DRUG - OTHER] PO; +[UNRECOGNIZED DRUG - OTHER] PO; +thyroid supplement
--- NOTE | 2021-04-27 23:09 | NUR ---
Patient assessed around 2029. Alert and oriented x 4, and able to make needs known. Patient denies pain, but did show facial grimacing with movement. Did talk to patient about pain management and agreed to take PRN APAP. Air mattress on bed deflated. Noted hole when trying to reinflate. New one placed on bed as requested. Patient voices no further questions, needs, or concerns at this time. In bed with all light within reach.
[2021-04-28 05:22] VITALS: BP 108/67; PULSE 77; TEMP 97.6
--- NOTE | 2021-04-28 05:34 | NUR ---
Patient has been resting in bed with call light within reach. Denies wanting any pain medication at this time. Patient has been using bedside urinal. Voices no questions, needs, or concerns at this time.
--- NOTE | 2021-04-28 07:39 | NUR ---
PT ASSESSED. NO COMPLAINTS OF PAIN OR DYSPNEA. NO SIGNS OR SYMTPOMS OF DISTRESS. PT AWAKE AN D EATING BREAKFAST. CALL LIGHT WITHIN REACH
--- NOTE | 2021-04-28 15:05 | NUR ---
SANDOVAL met with the patient to complete intake, as the patient is new to [facility]. The patient lives alone in [place]. He states that he has great friend support and that his brother, Jesse (ph#[phone]), also lives nearby. He reports independence with ADLs and has a rollator, FWW, 3 prong cane, a cane, and crutches. The patient's PCP is Dr. Silveira at the [facility] and he states that he is apart of their home based program. He receives his medications from [facility]. The patient does not have a DPOA-HC, but he reports that he does have one completed and that it designates his brothers: Jesse and Reggie and his friend, Kane Rosa. SANDOVAL then presented and reviewed the IPR Team Conference Note with him. The team has set a tentative discharge date for next , 05/06, with either home health vs outpatient PT. The patient is in agreement to the plan. He reports that he has done outpatient PT at [facility] in the past and he would prefer to do outpatient therapy again. SANDOVAL discussed also setting up a patient/family meeting. The patient would prefer to have the meeting with just himself on Monday at 0930. SANDOVAL notified IPR Director.
[2021-04-28 18:24] VITALS: BP 102/63; PULSE 89; TEMP 97.9
[2021-04-28 20:04] VITALS: BP 100/57; PULSE 85; TEMP 97.9
[2021-04-29 06:44] VITALS: BP 108/68; PULSE 80; TEMP 97.4
--- NOTE | 2021-04-29 07:03 | NUR ---
PT HAS NO NEW COMPLAINTS DURING NIGHT. TYLENOL ADMINISTERED FOR PAIN. PT USES URINAL, URINE IS CLEAR YELLOW.
--- NOTE | 2021-04-29 07:52 | NUR ---
PT ASSESSED. NO COMPLAINTS OF PAIN OR DYSPNEA. NO SIGNS OR SYMPTOMS OF DISTRESS. CALL LIGHT WITHIN REACH
--- NOTE | 2021-04-29 09:35 | NUR ---
Follow-up visit; Patient busy with Physical therapist. Finance Assistant offered Merry Brianda and God's blessings. Patient thanked business information manager for stopping by.
[2021-04-29 17:21] VITALS: BP 110/70; PULSE 86; TEMP 98.1
[2021-04-30 04:58] VITALS: BP 106/66; PULSE 79; TEMP 97.4
[2021-04-30 16:55] VITALS: BP 108/61; PULSE 91; TEMP 97.8
--- NOTE | 2021-04-30 19:14 | NUR ---
RECEIVED CHANGE OF SHIFT REPORT FROM DAY SHIFT RN.
--- NOTE | 2021-04-30 23:17 | NUR ---
PATIENT INITIALLY REFUSED TO WEAR PEPITO HOSE THEN INFORMED PATIENT OF RATIONAL BEHIND WEARING PEPITO HOSE WITH PATIENT THEN AGREEING TO WEAR HOSE TOMORROW.
[2021-05-01 03:18] VITALS: BP 112/63; PULSE 80; TEMP 98
--- NOTE | 2021-05-01 06:45 | NUR ---
CHANGE OF SHIFT REPORT GIVEN TO DAY SHIFT RNRENAN.
--- NOTE | 2021-05-01 09:17 | NUR ---
Assessment completed, alert/oriented, vital signs stable, reports pain controlled at rest, left hip incisional dressing is C/D/I, distal pulses are palpable, heart RRR, lungs CTA/ no resp.difficulty noted, he has had breakfast and has been up to bathroom and had BM, morning meds given, denies needs
[2021-05-01 18:50] VITALS: BP 118/70; PULSE 68; TEMP 98.2
--- NOTE | 2021-05-01 18:51 | NUR ---
RECEIVED CHANGE OF SHIFT REPORT FROM DAY SHIFT RN.
--- NOTE | 2021-05-02 02:17 | NUR ---
PATIENT SLEEPING, DOES NOT WAKE WHEN DOOR TO ROOM IS OPENED BY NURSING ON ROUNDS. OBSERVED BREATHING NONLABORED AND EVEN. BED ALARM ON WHEN IN BED WITH CALL LIGHT WITHIN REACH.
[2021-05-02 04:59] VITALS: BP 122/71; PULSE 84; TEMP 98
--- NOTE | 2021-05-02 07:05 | NUR ---
CHANGE OF SHIFT REPORT GIVEN TO DAY SHIFT AISSATOU BAH.
--- NOTE | 2021-05-02 08:02 | NUR ---
Patient up to the bathroom this am. Had a BM. Requesting a shower. Stand by assist with shower. Assisted with drying legs and assisted to get pants on. Helped comb hair. Fresh linens to bed. Tegaderm & gauze removed from hip dressing & steristrips intact. 2 blister noted under tegaderm to middle incisions. Bed alarm on. Will monitor. Pain pill when next doest due.
--- NOTE | 2021-05-02 10:16 | NUR ---
Patient continue to work with therapy. Will monitor.
--- NOTE | 2021-05-02 13:52 | NUR ---
Patient medicated with [place] per orders. Patient upset & frustrated because he was wanting medication sooner. I explained to him that the medication is ordered every 4 hours & I have to give the medication per orders. He was agreeable to take tylneol Prn as well to maybe assist with the pain. Urinal emptied. Will monitor.
--- NOTE | 2021-05-02 15:26 | NUR ---
Patient repositioned in bed & provided with ice pack for hip. Will monitor.
--- NOTE | 2021-05-02 17:08 | NUR ---
fresh water provided. no other needs at this time. will monitor.
[2021-05-02 17:28] VITALS: BP 92/64; PULSE 71; TEMP 98.1
--- NOTE | 2021-05-02 19:15 | NUR ---
Report to Melyssa
--- NOTE | 2021-05-02 22:03 | NUR ---
PT RESTING IN BED. C/O CONSTIPATION. GAVE COLACE WITH PAIN MED. ENC FLUIDS.
--- NOTE | 2021-05-03 05:14 | NUR ---
OFFERED PT PAIN MED IF NEEDED. DECLINED.
[2021-05-03 05:18] VITALS: BP 106/68; PULSE 83; TEMP 97.9
--- NOTE | 2021-05-03 06:46 | NUR ---
shift report received from NIURKA Ragsdale
--- NOTE | 2021-05-03 07:20 | NUR ---
awake and watching TV, assisted with sitting up in bed for breakfast, medicated with hydrocodone 5mg 1 tab for c/os minimal pain and in anticipation of therapy
--- NOTE | 2021-05-03 08:00 | NUR ---
had breakfast and tolerated well, full assessment completed, see interventions for further info,
--- NOTE | 2021-05-03 10:28 | NUR ---
physical therapy in to work with patient, ambulating out in juares
--- NOTE | 2021-05-03 11:46 | NUR ---
ambulating in juares with therapy, states pain is 7/10
--- NOTE | 2021-05-03 11:53 | NUR ---
medicated with hydrocodone 5mg 1 tab
--- NOTE | 2021-05-03 13:09 | NUR ---
reporty given to NIURKA Quevedo
--- NOTE | 2021-05-03 14:52 | NUR ---
Pt c/o hip pain post PT. 5/325 mg [place] given po. Will recheck in [address] Grace if pt need an additional 5/325 mg [place].
[2021-05-03 18:12] VITALS: BP 97/70; PULSE 98; TEMP 97.8
[2021-05-04 05:28] VITALS: BP 105/67; PULSE 85; TEMP 98.1
--- NOTE | 2021-05-04 06:56 | NUR ---
bedside shift report received from NIURKA Ragsdale
--- NOTE | 2021-05-04 07:35 | NUR ---
watching TV ready to eat breakfast, medicated with hydrcodone 5mg 1 tab for c/os pain 08/15 and in anticipation of therapy, also given prn colace per his request,
--- NOTE | 2021-05-04 08:27 | NUR ---
full assessment completed, see interventions for further info
--- NOTE | 2021-05-04 09:17 | NUR ---
physical therapy in to work with patient
--- NOTE | 2021-05-04 09:45 | NUR ---
Patient meeting conducted w/ pt, per is request. Also present was the PT, OT, & SW/speech and hearing clinic director. The team talked about how pt has been doing & any concerns & recommendations. Informed them of d/c for , 05/06/21, w/ recommendation for outpatient vs home health. Pt is requesting outpatient therapy & asked if he could go home tomorrow, 05/05/21. Told him that would be fine. Otherwise, he is fine w/ his progress & feels he is ready to go home. Did inquire which outpatient therapy facility he wants to use & told SW [facility].
--- NOTE | 2021-05-04 10:44 | NUR ---
out of room and working with therapy
--- NOTE | 2021-05-04 12:00 | NUR ---
returned from therapy and resting in bed, c/o some stomach upset as he hasn't had a BM, given protonix and miralax per his request
--- NOTE | 2021-05-04 13:45 | NUR ---
therapy in to work with patient, he is c/o pain and medicated with hydrocodone 5mg
--- NOTE | 2021-05-04 14:59 | NUR ---
continues to c/o pain after pain pill 1 hour ago, medicated with second tab of hydrocodone 5mg
--- NOTE | 2021-05-04 15:27 | NUR ---
offered dulcolax supp for constipation, declined supp but medicated with senokot 1 tab
[2021-05-04 18:00] VITALS: BP 113/74; PULSE 78; TEMP 97.7
--- NOTE | 2021-05-04 18:39 | NUR ---
RECEIVED CHANGE OF SHIFT REPORT FROM DAY SHIFT RN.
--- NOTE | 2021-05-04 18:40 | NUR ---
brooke report given to NIURKA Dave
--- NOTE | 2021-05-05 02:49 | NUR ---
PATIENT RESTING, UP IN ROOM PER SELF WITH NO REPORTED PROBLEMS OR CONCERNS. DISCHARGE 05/05 EXPECTED WITH NO FURTHER QUESTIONS REPORTED WHEN AWAKE PRIOR TO BEDTIME.
[2021-05-05 05:22] VITALS: BP 101/64; PULSE 81; TEMP 97.4
--- NOTE | 2021-05-05 06:50 | NUR ---
Report received from NIURKA Silverman. Patient is resting comfortably in bed. Patient denies pain at this time. Patient requested his breakfast be held until 0830. Call light and bedside table are within reach. Will continue to monitor patient throughout shift.
--- NOTE | 2021-05-05 07:13 | NUR ---
CHANGE OF SHIFT REPORT GIVEN TO DAY SHIFT SHIRA BAH.
[2021-05-05] MEDS ORDERED: ASPI325T6 PO (08:54)
[2021-05-05] MEDS ORDERED: NORCO 325 MG-51 TAB PO (08:57)
--- NOTE | 2021-05-05 11:00 | NUR ---
Visited w/ pt about d/c plans for today, 05/05/21. He stated he had no questions or concerns & feels he is ready to return home. Reviewed that he has an outpatient PT appointment on 05/12/21 at [facility]. D/C Plan: Home w/ outpatient PT
--- NOTE | 2021-05-05 14:36 | NUR ---
Patient has discharged to home and was picked up by a friend. Patient's room has been cleared of all personal items including cell phone and pickling operator. Patient's belongings was packed by patient. Patient health summary, discharge summary and home meds printed and reviewed with patient. Stressed importance of follow up appointments. Reviewed medications. Pt insisted on walking down with walker and no wheel chair. Patient was taken down to car by NIURKA Franco and was seatbelted in fro ride home.
== END 2021-05-05 14:30 | disposition home or self-care (01) | DRG 560 ==
PROVIDERS: ADMIT Physical Medicine & Rehabilitation Sports Medicine
DX: S72.142D Displaced intertrochanteric fracture of left femur, subsequent encounter for closed fracture with routine healing (principal); C91.10 Chronic lymphocytic leukemia of B-cell type not having achieved remission; R26.89 Other abnormalities of gait and mobility; D64.89 Other specified anemias; R42 Dizziness and giddiness; K30 Functional dyspepsia; E03.9 Hypothyroidism, unspecified; Y92.79 Other farm location as the place of occurrence of the external cause; W18.39XD Other fall on same level, subsequent encounter; Z73.6 Limitation of activities due to disability; Z79.82 Long term (current) use of aspirin; Z79.899 Other long term (current) drug therapy; K59.00 Constipation, unspecified

== ENCOUNTER → 2021-08-05 | Outpatient (RCR) | payer OTHER | END | disposition still patient (30) | LOC: MKS.ESL.PT | DX: M25.511 Pain in right shoulder (principal) ==

== ENCOUNTER 2021-08-30 09:45 | Outpatient (RCR) | payer OTHER | END 2021-09-04 | disposition home or self-care (01) | LOC: MKS.ESL.PT | DX: M25.511 Pain in right shoulder (principal) ==

== ENCOUNTER 2021-09-03 09:07 | Outpatient (RCR) | payer OTHER | END 2021-09-04 | LOC: MKS.ESL.PT | DX: S72.142S Displaced intertrochanteric fracture of left femur, sequela (principal); X58.XXXS Exposure to other specified factors, sequela ==

== ENCOUNTER → 2021-09-27 09:34 | Outpatient (RCR) | payer OTHER | END | disposition home or self-care (01) | LOC: MKS.ESL.PT 09-05 09:30 | DX: M25.511 Pain in right shoulder (principal) ==

== ENCOUNTER 2021-10-01 09:30 | Outpatient (RCR) | payer OTHER | END 2021-10-05 | disposition home or self-care (01) | LOC: MKS.ESL.PT | DX: S72.142S Displaced intertrochanteric fracture of left femur, sequela (principal) ==

== ENCOUNTER 2021-11-01 09:30 | Outpatient (RCR) | payer OTHER | END 2021-11-04 | disposition still patient (30) | LOC: MKS.ESL.PT | DX: S42.142 Displaced fracture of glenoid cavity of scapula, left shoulder (principal); X58.XXXS Exposure to other specified factors, sequela ==

== ENCOUNTER → 2021-12-22 | Outpatient (CLI) | payer OTHER | LOC: COL.RAD 11:11 | DX: R22.9 Localized swelling, mass and lump, unspecified (principal); R79.89 Other specified abnormal findings of blood chemistry | CPT/HCPCS: Q9967 ==

== ENCOUNTER 2022-12-13 08:30 | Outpatient (RCR) | payer OTHER | END 2023-01-05 | disposition home or self-care (01) | LOC: MKS.ESL.PT | DX: M54.50 Low back pain, unspecified (principal) ==